=== PATIENT | female | born 1990 | race African-American/Black ===

== ENCOUNTER 2016-04-11 06:37 | Emergency (ER) | payer OTHER ==
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
[2016-04-11 07:58] LABS: BASO% 0.4 % (0.0-0.8); EOS# 0.42 X1000 (0.0-0.7); EOS% 5.1 % (0.0-10.0); HEMATOCRIT 34.7 % (37.0-47.0); HEMOGLOBIN 11.6 g/dL (12.0-16.0); IMM GRAN# 0.01 X1000 (0.0-0.04); IMM GRAN% 0.1 % (0.0-0.5); LYMPH# 2.69 X1000 (1.2-3.4); LYMPH% 32.4 % (20.5-51.1); MANUAL DIFF NEEDED? NO; MCHC 33.4 g/dL (33-37); MPV 8.8 FL (7.4-10.4); PLT 343 X1000 (130-400); RBC 6.09 XMIL (4.2-5.4)
[2016-04-11 07:59] LABS: URINE SOURCE CLEAN CATCH
[2016-04-11 08:03] LABS: BILIRUBIN URINE NEGATIVE (NEGATIVE); BLOOD URINE NEGATIVE (NEGATIVE); CLARITY SL. CLOUDY (CLEAR); COLOR YELLOW; GLUCOSE URINE NEGATIVE (NEGATIVE); LEUKOCYTES URINE NEGATIVE (NEGATIVE); NITRITE URINE NEGATIVE (NEGATIVE); PH URINE 6.5; PROTEIN URINE 2+(100 mg/dL) mg/dL (NEGATIVE); UROBILINOGEN URINE NORMAL
[2016-04-11 08:07] LABS: AGAP 11; ALBUMIN 4.3 g/dL (3.5-5.0); ALKALINE PHOSPHATASE 100 U/L (32-104); BUN 8 mg/dL (8-22); CALCIUM 9.2 mg/dL (8.8-10.2); CHLORIDE 105 mmol/L (98-107); COSMO 278; GOT 22 U/L (10-30); GPT 25 U/L (10-36); POTASSIUM 3.8 mmol/L (3.5-5.1); SODIUM 140 mmol/L (136-145); TCO2 24 mmol/L (25-35); TOTAL PROTEIN 6.9 g/dL (6.3-8.3)
[2016-04-11 08:07] LABS: URINE CULTURE PL NEEDED? YES; URINE EPITHELIAL CELLS >10 /HPF (<10)
[2016-04-11 08:14] LABS: PROTIME 13.5 Seconds (12.1-15.5)
[2016-04-11 08:41] LABS: CK PROFILE 224 U/L (24-173)
[2016-04-11 08:59] LABS: CK INDEX 0.7 (0.0-2.5); CK-MB 1.67 ng/mL (0.0-5.0)
--- NOTE | 2016-04-11 09:57 | Diag Imaging Result Document ---
PROCEDURE NAME: LOWER LEG-LEFT - 04/11/2016 LEFT TIBIA AND FIBULA, TWO VIEWS: FINDINGS: No fracture. No dislocation. IMPRESSION: No acute bony injury.
--- NOTE | 2016-04-11 09:58 | Diag Imaging Result Document ---
PROCEDURE NAME: ANKLE COMPLETE LEFT - 04/11/2016 LEFT ANKLE, THREE VIEWS: FINDINGS: No fracture. No dislocation. IMPRESSION: No acute bony injury.
--- NOTE | 2016-04-11 09:59 | Diag Imaging Result Document ---
PROCEDURE NAME: FEMUR MIN 2 VIEWS LEFT - 04/11/2016 LEFT FEMUR, FOUR VIEWS: FINDINGS: No fracture. No dislocation. IMPRESSION: No acute bony injury.
--- NOTE | 2016-04-11 10:02 | Diag Imaging Result Document ---
PROCEDURE NAME: HEAD/C-SPINE W/O CONTRAST - 04/11/2016 CT BRAIN AND CERVICAL SPINE WITHOUT: CT BRAIN: FINDINGS: No parenchymal hemorrhage. No epidural or subdural hematoma. No subarachnoid hemorrhage. No skull fracture. No hydrocephalus. No mass identified on this noncontrasted exam. No sinus opacification. IMPRESSION: No hemorrhage. No injury. CT CERVICAL SPINE WITHOUT CONTRAST: FINDINGS: There is mild scoliosis. No precervical soft tissue swelling. No subluxation. No fracture. IMPRESSION: No acute bony injury. A preliminary report was given at 9:25 a.m..
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
[2016-04-11 10:16] VITALS: BP 144/74
== END 2016-04-11 10:16 | disposition home or self-care (01) ==
LOC: P.ED 06:37
DX: S90.812A Abrasion, left foot, initial encounter (principal); S90.512A Abrasion, left ankle, initial encounter; M25.512 Pain in left shoulder; M79.605 Pain in left leg; M79.1 Myalgia; R26.2 Difficulty in walking, not elsewhere classified; M62.81 Muscle weakness (generalized); M54.2 Cervicalgia; H53.149 Visual discomfort, unspecified; K44.9 Diaphragmatic hernia without obstruction or gangrene; E11.9 Type 2 diabetes mellitus without complications; I10 Essential (primary) hypertension; F17.210 Nicotine dependence, cigarettes, uncomplicated; E66.9 Obesity, unspecified; Z79.899 Other long term (current) drug therapy; Z87.442 Personal history of urinary calculi; V49.9XXA Car occupant (driver) (passenger) injured in unspecified traffic accident, initial encounter
CPT/HCPCS: 70450; 71260; 72125; 74177; 80053; 81001; 81025; 82550; 82553; 85025; 85610; 87088; Q9967

== ENCOUNTER 2018-10-19 18:24 | Inpatient (IN) ==
[2018-10-19] MEDS ORDERED: TYLENOL PO ONE (18:36)
--- NOTE | 2018-10-19 19:11 | PROVIDER DOCUMENTATION ---
HPI-General Adult - General Chief Complaint: Fever Stated Complaint: PAIN IN NECK DOWN BODY Time Seen by Provider: 10/19/18 18:58 Source: patient Allergies/Adverse Reactions: Patient Allergies Allergy/AdvReac Type Severity Reaction Status Date / Time latex Allergy RASH Verified 04/03/17 13:53 Home Medications: Home Medication List Medication Instructions Recorded Confirmed Last Taken Type Metformin [Glucophage] 500 mg PO BID 10/11/15 03/17/17 03/11/16 History Omeprazole [Prilosec] 20 mg PO DAILY@0700 #20 capsule 12/17/15 03/17/17 03/11/16 Rx Lisinopril/Hydrochlorothiazide 1 each PO BID 03/11/16 03/17/17 03/11/16 History [Lisinopril-Hctz 20-25 mg Tab] Albuterol Sulfate 2.5 mg IH Q4H PRN PRN #120 vial.neb 10/27/16 03/17/17 Unknown Rx Albuterol Sulfate [Albuterol 8.5 gm IH Q4-6H PRN PRN #1 10/27/16 03/17/17 Unknown Rx Sulfate Hfa] hfa.aer.ad Albuterol Sulfate [Proair Hfa] 8.5 gm IH PRN PRN #2 hfa.aer.ad 10/27/16 03/17/17 Unknown Rx Methylprednisolone [Medrol Dosepak] 4 mg PO DIRECTED #1 pkg 03/17/17 Unknown Rx Ondansetron Odt [Zofran 8Mg Odt] 8 mg PO Q8H PRN PRN #20 tab 03/17/17 Unknown Rx Oseltamivir [Tamiflu] 75 mg PO BID #10 cap 03/17/17 Unknown Rx Acetaminophen/Diphenhydramine 1 ea PO TID #15 tab 04/03/17 Unknown Rx [Percogesic 325-12.5 mg Tablet] Amoxicillin [Amoxil] 500 mg PO BID #14 cap 07/18/17 Unknown Rx Guaifen/Dextromethorphan/PE 1 ea PO Q4-6H PRN PRN #20 tab 07/18/17 Unknown Rx [Deconex Dmx Tablet] Methylprednisolone [Medrol Dosepak] 4 mg PO DIRECTED #1 pkg 07/18/17 Unknown Rx - History of Present Illness -Gen Adult Nature of Presenting Problems: [id number] presents to the ER with c/o neck pain and stiffness with fever. She states she woke up Johnathan with neck pain that continues to get worse. She states that today she is unable to move her neck in any direction without extreme pain. Upon arrival patients temp is 101.7. She denies any injury. She states the pain radiates down to her knees if she makes any attempt at movement. Location of Pain/Injury: reports: neck Pain Radiation: reports: other (down the spine to her knees) Quality of Pain: reports: sharp, stabbing Severity: reports: severe Onset/Duration: reports: 4 days ago Timing: reports: getting worse Context/Activities at Onset: reports: none Modifying Factors: improves with: immobilization Associated Symptoms: reports: fever/chills Similar Symptoms Previously?: No Recently seen or treated by another doctor?: No Review of Systems - Adult - REVIEW OF SYSTEMS - ADULT Constitutional: reports: see HPI, chills, fever Eyes: reports: no symptoms reported. denies: decreased vision, double vision Ears, Nose, Mouth & Throat: reports: no symptoms reported. denies: ear pain, epistaxis Cardiovascular: reports: no symptoms reported. denies: edema, palpitations, syncope Respiratory: reports: no symptoms reported. denies: dyspnea on exertion, shortness of breath, wheezing Gastrointestinal: reports: no symptoms reported Genitourinary: reports: no symptoms reported Musculoskeletal: reports: see HPI, neck pain Integumentary: reports: no symptoms reported Neurological: reports: no symptoms reported. denies: dizziness/vertigo, loss of balance, syncope Psychiatric: reports: no symptoms reported Endocrine: reports: no symptoms reported Hematologic/Lymphatic: reports: no symptoms reported Allergic/Immunologic: reports: no symptoms reported All Other Systems: Reviewed and Negative Past History - Adult - PAST MEDICAL HISTORY-ADULT Review of Records: reports: Old Records Reviewed, Nursing Assessment Review, Medications Reviewed, Social history reviewed & non-contributory. Major Childhood Illnesses: reports: denies history Cardiovascular: reports: HTN Respiratory: reports: asthma Gastrointestinal: reports: denies history Obstetrical/Gynecological: reports: denies history Genitourinary: reports: kidney stones Musculoskeletal: reports: denies history Neurological: reports: headaches/migraines Endocrine/Immune: reports: denies history Other Conditions: reports: denies history - PRIOR SURGERIES/PROCEDURES Surgical/Procedure History: reports: , hernia repair - IMMUNIZATION STATUS Childhood Immunizations: See Nurse Assessment Flu Vaccine: See Nurse Assessment - FAMILY HISTORY Family History: reviewed, not pertinent - SOCIAL HISTORY Smoking: denies Substance Use: none/never Living Situation: family Physical Exam-General - PHYSICAL EXAM-ADULT Initial Vital Signs Reviewed: Yes - CONSTITUTIONAL General Appearance: alert, mild distress - EYES Eyes: PERRL/EOMI, pink conjunctivae - HEAD, EARS, NOSE, MOUTH & THROAT HENMT: normocephalic/atraumatic, moist mucous membranes, normal ENT inspection - NECK Neck: C-spine tenderness, limited range of motion. negative: non-tender, full range of motion, supple - RESPIRATORY Respiratory: chest non-tender, lungs clear, normal breath sounds - CARDIOVASCULAR Cardiovascular: normal peripheral pulses, regular rate, rhythm - GASTROINTESTINAL (ABDOMEN) Abdominal Exam: normal bowel sounds, non tender, soft - LYMPHATIC Lymphatic: no adenopathy - MUSCULOSKELETAL Back Exam: normal inspection, vertebral tenderness (c-spine, t-spine with any motion of the head) Extremity: non-tender, normal gait Peripheral Pulses: radial (R): 2+, radial (L): 2+, dorsalis-pedis (R): 2+, dorsalis-pedis (L): 2+ - SKIN Integumentary: normal color, normal turgor, warm/dry - PSYCHIATRIC Psych/Mental Status: oriented x 3 Progress - PLAN OF CARE/RESULTS Progress/Plan/Lab Results: Vital Signs - 8 hr 10/19/18 18:32 Temperature 101.7 F H Pulse Rate 106 H Respiratory Rate 18 Blood Pressure 131/80 O2 Sat by Pulse Oximetry 97 Orders Category Date Time Status CT CERVICAL SPINE W/CONTRAST [CT] Stat Exams 10/19/18 19:08 Ordered BLOOD CULTURE [BLDCUL] Stat Lab 10/19/18 19:08 Uncollected CBC WITH ELECTRONIC DIFF [HEME] Stat Lab 10/19/18 18:58 Uncollected COMPREHENSIVE METABOLIC PANEL [CHEM] Stat Lab 10/19/18 19:08 Uncollected Acetaminophen [Tylenol] Med 10/19/18 18:36 Discontinued 1,000 mg PO NOW ONE patient verbalizes an understanding of POC and agrees with treatment rendered here today. She will be admitted to the hospital. Result Diagrams: 10/19/18 19:26 10/19/18 19:26 - XRAY 1 XRAY Study: C-Spine Impression: Normal (no acute abnormality), See EMR Report - CONSULTS/PCP/HOSPITALIST Notification #1 *Consult/PCP/Hospitalist*: Dr Mcfadden Time Discussed: 11:45 Reason/Comments: FUO, leukocytosis Consult Disposition: Admit Procedures - LUMBAR PUNCTURE Procedure, Risk, Benefits and Alternatives discussed with:: Patient Consent Form Signed?: Yes Time-Out Verification Completed?: Yes Patient Position: Sitting over table Insertion Site: L4-5 Site Prep: Kit Utilized, Betadine Anesthetic: 1%, Lidocaine/Xylocaine Volume of Anesthetic (ml's): 3 Procedure Successful?: No Procedure Comment: bloody tap, advised MLP to contact radiologist for fluoro- directed LP Departure - Departure Date of Disposition Decision: 10/20/18 Time of Disposition Decision: 00:20 DIAGNOSIS: Fever of unknown origin (FUO) Leukocytosis Qualifiers: Leukocytosis type: unspecified Qualified Code(s): D72.829 - Elevated white blood cell count, unspecified Disposition: ADMITTED INPATIENT 09 Certified Medical Emergency: Emergent Condition: Critical Additional Freetext Instructions: ED Follow Up Instructions: You have been treated by a care provider in the Emergency Department. These instructions are being provided to you so you can have an understanding of how to care for yourself upon discharge. Upon discharge from the Emergency Department, you are responsible for making arrangements for follow-up care by a physician of your choice. Take all prescribed medications as directed. Return to the Emergency Department immediately for any new or worsening symptoms. You may call the Physician Referral phone number at [phone] to obtain a list of Physicians who are taking new patients. Referrals and Follow-Ups: Tim Nicole MD [Primary Care Provider] - - Critical Care Note This patient required my direct & personal management of CC.: Yes Total Time (mins): 42 Critical Care Statement: This patient required my direct personal management to treat or rule out processes, the absence of which, could potentiallly result in sudden, clinically significant life or limb threatening deterioration. Attestation - Physician/ KIMI Attestation Patient care was provided by Advanced Practice Provider:: Yes Advanced Practice Provider:: Dante Mendoza Advanced Practice Provider documentation review:: The Mid-level provider documentation, treatment plan and medical decision making was reviewed by the physician who agrees with all treatment and medical decision making by the MLP. The physician spent face to face time with patient:: Yes (Dr Vilchis, Dr Alonzo) Advanced Practice Provider documentation review:: Supervising physician onsite and consulted in the evaluation and care of this patient. The physician did have a face to face encounter with the patient.
[2018-10-19 19:48] LABS: EOS# 0.24 X1000 (0.0-0.7); HEMATOCRIT 38.2 % (37.0-47.0); HEMOGLOBIN 13.1 g/dL (12.0-16.0); LYMPH# 7.45 X1000 (1.2-3.4); LYMPH% 63.1 % (20.5-51.1); MCH 21.7 PG (27-31); MCHC 34.3 g/dL (33-37); MCV 63.2 FL (81-99); MONO# 1.78 X1000 (0.11-0.59); MONO% 15.1 % (1.7-9.3); MPV 10.3 FL (7.4-10.4); PLT 247 X1000 (130-400); RBC 6.04 XMIL (4.2-5.4); WBC 11.81 X1000 (4.8-10.8)
[2018-10-19 20:05] LABS: AGAP 12; ALBUMIN 3.1 g/dL (3.5-5.0); ALKALINE PHOSPHATASE 108 U/L (32-104); BUN 6 mg/dL (8-22); CALCIUM 7.8 mg/dL (8.8-10.2); CHLORIDE 98 mmol/L (98-107); COSMO 264; CREATININE 0.8 mg/dL (0.5-0.9); ESTIMATED GFR > 60; GLUCOSE 103 mg/dL (70-104); GOT 49 U/L (10-30); GPT 42 U/L (10-36); POTASSIUM 4.1 mmol/L (3.5-5.1); SODIUM 133 mmol/L (136-145); TCO2 24 mmol/L (25-35); TOTAL PROTEIN 6.5 g/dL (6.3-8.3)
[2018-10-19 20:11] LABS: BANDS 2 % (0-1); EOS 4 % (1-10); LYMPHS 60 % (21-51); MONO 10 % (1-9); SEGS 18 % (42-75)
[2018-10-19 20:17] LABS: HYPOCHROM 2+; MICROCYTOSIS 2+; OVALOCYTES 2+; POIKILOCYTOSIS 2+
[2018-10-19 20:18] LABS: TARGET CELLS 1+
[2018-10-19] MEDS ORDERED: ROCEPHIN 1 GM in NS 50 ML IV ONE (20:41)
[2018-10-19] MEDS ORDERED: BENADRYL IV ONE (21:20)
[2018-10-19] MEDS ORDERED: SODIUM CHLORIDE 0.9% INJ ONE (21:20)
[2018-10-19] MEDS ORDERED: PHENERGAN IV ONE (21:20)
[2018-10-19] MEDS ORDERED: SOLU-MEDROL IV ONE (21:20)
[2018-10-19] MEDS ORDERED: XYLOCAINE-MPF 1% ONE (23:31)
[2018-10-19] MEDS ORDERED: XYLOCAINE 1% INJ ONE (23:32)
[2018-10-20] MEDS ORDERED: ZOFRAN IV PRN (00:22)
[2018-10-20] MEDS ORDERED: TYLENOL PO PRN (00:22)
[2018-10-20] MEDS ORDERED: MORPHINE IV PRN ×2 (04:29→18:21)
--- NOTE | 2018-10-20 07:14 | Diag Imaging Result Doc PS360 ---
EXAM: CT CERVICAL SPINE W/CONTRAST - 10/19/2018 HISTORY: cervical pain, fever TECHNIQUE: CT cervical spine with intravenous contrast COMPARISON: 04/11/2016 CT cervical spine without contrast FINDINGS: There is no fracture or subluxation identified. There are no erosive or destructive changes identified. There is no substantial disc protrusion or central degenerative disease identified. There is a 0.6 cm low-density area in the inferior right submandibular gland of uncertain significance. This does not have enhancing margins. Otherwise, there is no discrete abscess identified neck. There are mildly prominent right submandibular lymph nodes. There are nonspecific small bilateral cervical lymph nodes. There is mild enlargement of the inferior left lobe thyroid but this enhances similarly to the remainder of the thyroid. IMPRESSION: Unremarkable cervical spine. No evidence of fracture or subluxation. 0.6 mm low-density area in inferior right submandibular gland uncertain significance. Mildly prominent right submandibular lymph nodes. Nonspecific small bilateral cervical lymph nodes. Mild enlargement of the inferior left thyroid lobe. The remediation technician radiologist provided preliminary results at 11:24 PM on 10/19/2018. This exam was performed using automated exposure control, adjustment of mA or kV according to patient size, and/or use of iterative reconstruction technique. Electronically signed by Srikanth Castillo 10/20/2018 7:12 AM
[2018-10-20] MEDS: MORPHINE IV PRN ×2 (11:14→14:54)
--- NOTE | 2018-10-20 14:26 | HISTORY AND PHYSICAL ---
PRIMARY CARE PROVIDER: Tim Nicole MD. CHIEF COMPLAINT: Neck pain. HISTORY OF PRESENT ILLNESS: Ms. Carter is a 28-year-old female who carries a past medical history of chronic hypertension, diabetes mellitus, GERD who reported to the ED complaining of neck pain. She states a few weeks ago she started feeling lightheaded, weak, and was diagnosed with a UTI in [place]. She has really not had an appetite since that time. Over the last few days she has been having some neck pain that radiated to her back and knees, especially when looking down. She came today to the ED to be evaluated. She was found to have a temp of 101.7 degrees. They did try to do a spinal tap that was unsuccessful. Cervical spine CT was unremarkable. No evidence of fracture or subluxation. There was a 0.6 mm low-density area in the inferior right submandibular gland of uncertain significance with mildly prominent right submandibular lymph nodes, mild enlargement of her inferior left thyroid lobe. She had a slightly elevated white count at 11. Sodium 133, AST of 49, ALT of 42, and alkaline phosphatase of 108. We currently have an MRI and MRA of the brain and neck ordered and initiated her on IV antibiotics prophylactically. PAST MEDICAL HISTORY: 1. Diabetes mellitus. 2. Hypertension. 3. GERD. PAST SURGICAL HISTORY: 1. Four C-sections. 2. Umbilical hernia repair. 3. Left middle finger surgery. FAMILY HISTORY: Paternal grandmother with a myocardial infarction. Diabetes mellitus in all family. Mother with uterine or cervical cancer x2. SOCIAL HISTORY: She is single. She has 2 children. She smokes 6 cigarettes per day. No alcohol or illicit drug use. She lives in the [place] area. HOME MEDICATIONS: 1. Clonidine. 2. Norvasc. 3. Lisinopril hydrochlorothiazide. 4. Prilosec. ALLERGIES: Latex. REVIEW OF SYSTEMS: Twelve-point review of systems completely negative except for those mentioned in HPI. PHYSICAL EXAMINATION: VITAL SIGNS: Temperature is 97.9 degrees, heart rate 77, respirations 18, blood pressure 121/75, O2 is 100% on room air. GENERAL: Ms. Carter is a 28-year-old female who is lying in the bed on her right side. She is not currently in any pain, in no acute distress. HEENT: Atraumatic, normocephalic. PERRL. NECK: Supple. Trachea midline. CARDIOVASCULAR: S1, S2 appreciated. No murmurs, gallops, rubs noted. RESPIRATORY: Lung sounds clear bilaterally. GI: Soft, nontender, nondistended. Positive bowel sounds in 4 quadrants. EXTREMITIES: Lower extremities negative for edema. NEUROLOGIC: No focal deficits noted. DIAGNOSTIC DATA: Cervical spine CT as per HPI. Pending a brain MRI, neck MRA. LABORATORY DATA: White count 11, hemoglobin and hematocrit 13 and 38, platelet count is 247,000. Sodium 133, potassium 4.1, BUN 6, creatinine 0.8, blood glucose is 103, AST 49, ALT 42, alkaline phosphatase 108. ASSESSMENT AND PLAN: 1. Neck pain. We will rule out any acute processes. CT did not really show anything acute. They did attempt a spinal tap, that was unsuccessful. We have ordered an MRI of the brain and MRA of the neck. We will continue with IV pain medication. 2. Fever of unknown origin. We will continue with IV Rocephin. She has been afebrile since admission. Continue with p.r.n. Tylenol. 3. Transaminitis. We will recheck her levels in the a.m. 4. Mild hyponatremia. 5. Further recommendations to follow physician evaluation, laboratory and diagnostic data. Dictated by NARINDER Sandy for Lloyd Bowling MD cc: Lloyd Bowling MD
[2018-10-20] MEDS ORDERED: VENTOLIN HFA INH PRN (14:28)
[2018-10-20] MEDS ORDERED: ALBUTEROL NEB INH PRN (14:28)
[2018-10-20] MEDS ORDERED: NICODERM PATCH TD PRN (14:28)
--- NOTE | 2018-10-20 15:54 | Diag Imaging Result Doc PS360 ---
MRI BRAIN W/O CONTRAST - 10/20/2018 INDICATION: stiff neck w/ fever COMPARISON: 06/27/2014 FINDINGS: There is no area of restricted diffusion. The ventricles and sulci are normal in size and contour. No intracranial mass or hemorrhage. Midline structures including the optic chiasm and pituitary are normal. IMPRESSION: Negative exam. Electronically signed by Shane Cash 10/20/2018 3:52 PM
[2018-10-20] MEDS: CATAPRES PO SCH (16:58)
--- NOTE | 2018-10-20 17:37 | CONSULTATION ---
DATE OF CONSULTATION: 10/20/2018 Ms. Carter is 28 years old and she has had some neck pain and possibly malaise. History from the patient is that she noticed about 3 weeks ago that she felt lightheaded sometimes and that she did not have an appetite. She felt a little bit weak all over without focal features. She reports she presented to a local facility and was diagnosed with urinary tract infection. She took some medicine for a week. She returned to the facility reporting lightheadedness, anorexia, weakness were all the same and she had begun to notice sharp pain mostly posteriorly in her neck without definite radicular features. She began to notice that flexing her head would cause pain which seemed to travel down her spine into both legs. She did not notice focal weakness, focal clumsiness, increased tone in 1 limb more than another. She did not fall. She did not lose bowel or bladder control. Today, she reports appetite is beginning to recover. Neck pain has persisted. She reports no history of head, neck, shoulder injury. She has not had similar problems in the past. She takes hydrocodone chronically with monthly supply prescribed by Dr. Nicole. She reports not missing any doses, but she presented with urine drug screen negative for opiates on 10/10/2018. PDMP shows she had used alprazolam regularly but stopped that about 6 months ago. Today, she told me she has not had recent illicit drugs, illegal drugs, benzodiazepines of any sort. She drinks ethanol occasionally. She reports recent birthday was associated with a little bit more ethanol than usual. She presented this time with mildly elevated liver enzymes: AST 49, ALT 42, and old lab results in the computer showed previously normal liver enzymes. Other lab work includes WBC 11,810. Sodium was 133. Blood sugar was 103 on admission yesterday. She reports diagnosis of diabetes mellitus in the past and she reports being told more recently that she does not have diabetes mellitus. She has hypertension and GERD. She takes medicine for those problems. She had temperature 101.7 degrees initially and she has been afebrile for the last 24 hours. Systolic blood pressures have ranged 100 to 130s. Imaging includes cervical CT showing nothing remarkable. Noncontrast brain MRI today is unremarkable. Computer record shows 06/27/2014 brain MRI with and without contrast unremarkable. After admission, for her neck pain, she received morphine sulfate 4 mg and 2 mg 1 dose each. On exam, Ms. Carter is awake, alert, attentive. She seems appropriate. Speech is not dysarthric. Language function is intact. Memory is good. Head is unremarkable. Slight passive head flexion produces what she reports is intense pain in her neck. I do not palpate paraspinal spasm, but she could not tolerate vigorous neck muscle palpation because of discomfort. She has discomfort with head rotation left and right and with extension, but more discomfort with flexion than with other maneuvers. Visual jones are full. Extraocular movements are full. Facial motility is normal and symmetric. Gag is intact. Tongue is midline. She can hear. Shoulder shrug is equal. Strength is normal in the arms and legs. She did well on [id number] testing bilaterally. She reports symmetric sensation over the limbs. Proprioception is normal at the great toe MTP joint and at the second finger MCP joint bilaterally, but her responses are little bit more brisk in the right limbs than the left. She did well on [id number] testing bilaterally. Tone may be slightly increased in the left limbs. Reflexes are 2+ at the left knee, 1+ at the right knee, 2+ at the left ankle, 1+ at the right ankle, 1+ symmetrically at the wrists, 2+ symmetrically at the biceps. Tone and reflexes are inconsistent and somewhat difficult to boat oar maker with certainty due to her movement and repositioning during testing; she reported neck discomfort with passive knee extension. Plantar response is silent bilaterally. I did not test her gait. IMPRESSION: Neck pain. There is some fairly subtle evidence of tonal asymmetry, increased in the left limbs, but I am not certain these findings are valid. She reported a good bit of discomfort and any passive movement including passively positioning her legs to check reflexes was often associated with some voluntary limb muscle contraction. Negative cervical CT is reassuring. Negative brain MRI is reassuring. Next step would be to consider cervical MRI to get a better look at the spinal cord. If this is purely a cervical myelopathy, I do not think we would see as much cervical paraspinal muscle tenderness. I am optimistic that she may have turned the corner and started to improve with some improvement in appetite. I do not think we have to do anything urgently but, if she does not continue to improve, cervical MRI with contrast would be the next step from a Neurology standpoint. For current management, we might consider cautious trial with steroids if she really does not have diabetes mellitus. We might try muscle relaxer such as cyclobenzaprine or methocarbamol. She reports taking cyclobenzaprine in the past and she tolerated that. If she develops more persistent cervical paraspinal spasm, we might cautiously try diazepam, but I am reluctant to add a benzodiazepine for this patient who recently stopped taking alprazolam regularly. Thanks for asking Neurology to see Ms. Carter. I will be glad to see her as an outpatient, if needed. cc: MD MONIKA Bianchi III
[2018-10-20] MEDS ORDERED: ROBAXIN PO PRN (18:21)
[2018-10-20] MEDS: SOLU-MEDROL IV SCH (18:43)
[2018-10-20] MEDS ORDERED: ROCEPHIN 1 GM in NS 50 ML IV SCH (21:00)
--- NOTE | 2018-10-20 23:55 | HISTORY AND PHYSICAL ---
ADDENDUM: SUBJECTIVE: The patient has a multitude of complaints. Unfortunately it is quite difficult to ascertain what is actually her complaints versus her aunt's previous medical issues as she frequently intertwines the two. She does note that she has been lightheaded, dizzy. She has had some neck pain which certainly does not appear to be meningitis type neck pain as she is noted to sit up on the side of the bed without any assistance, no grimacing. She did have a low-grade fever of 101.7 in the ER, but has had no fever since. Spinal tap was attempted in the ER and was unsuccessful. We are going to admit her to the hospital and ask Neurology for an opinion, check MRI and we will follow. cc: Lloyd Bowling MD
[2018-10-21 05:48] VITALS: BP 116/63
[2018-10-21] MEDS: SOLU-MEDROL IV SCH (05:59)
[2018-10-21] MEDS ORDERED: PRILOSEC PO SCH (07:00)
[2018-10-21] MEDS ORDERED: NON-FORMULARY MED (Lisinopril/Hydrochlorothiazide [Lisinopril-Hctz 20-25 Mg Tab] 1 EACH) PO SCH (09:00)
[2018-10-21] MEDS: HYDROCHLOROTHIAZIDE PO SCH ×2 (09:36→09:42)
[2018-10-21] MEDS: NORVASC PO SCH ×2 (09:37→09:43)
[2018-10-21] MEDS: PRINIVIL PO SCH ×2 (09:37→09:43)
[2018-10-21] MEDS: CATAPRES PO SCH ×2 (09:37→09:42)
[2018-10-21] MEDS ORDERED: NORCO-7.5 PO ONE (09:59)
--- NOTE | 2018-10-21 10:50 | DISCHARGE SUMMARY ---
ADMISSION DATE: 10/20/2018 DISCHARGE DATE: 10/21/2018 CONSULTATIONS: Dr. Kelly with Neurology. PERTINENT PROCEDURES: 1. Cervical spine CT unremarkable. 2. Brain MRI negative exam. DIAGNOSES: 1. Neck pain. The patient has been evaluated by Neurology. She does have a negative cervical spine CT as well as a negative brain MRI. We have set her up for a MRI of her cervical spine as an outpatient to be followed up by her PCP Dr. Tim Nicole. We will do steroid Dosepak. 2. Diabetes mellitus. The patient is not currently on any medications. Diet controlled. 3. Fever of unknown origin. She has been on IV Rocephin, and has continued to be afebrile. 4. Hypertension. Continue home medications. 5. Transaminitis. 6. Mild hyponatremia. 7. Hypertension. Continue home medications. HOSPITAL COURSE: Briefly, Ms. Carter is a 28-year-old female who carries a past medical history of chronic hypertension, diabetes mellitus, GERD, who reported to the ED complaining of neck pain. She stated a few days ago she started feeling lightheaded, weak, unable to eat, and was diagnosed with UTI in [place] where she lives. Over the last few days, she had been having some neck pain that radiated through her back into her knees, especially when looking down. She came to the ED to be evaluated. She was found to have a temperature of 101.7 degrees, and initiated on Rocephin. They did try a spinal tap, but that was unsuccessful. Cervical spine CT was unremarkable as well as a brain MRI. She has been afebrile since admission. She will not be discharged home on any antibiotics. We will do a trial of steroids for her neurology's recommendations as well as set her up for an outpatient MRI on her cervical spine. She has to follow up with her primary care provider, Dr. Tim Nicole, and is being discharged home today. VITAL SIGNS: Temperature 98 degrees, heart rate 63, respirations 18, blood pressure 116/63, and O2 is 100% on room air. DISCHARGED DIET: Diabetic. DISCHARGE MEDICATIONS: 1. Clonidine 0.1 mg p.o. t.i.d. 2. Lisinopril/hydrochlorothiazide 1 each p.o. daily. 3. Norvasc 10 mg p.o. daily. 4. Prilosec 40 mg p.o. daily. 5. Albuterol sulfate 2.5 g inhaled q.4 hours p.r.n. shortness of breath. 6. Medrol Dosepak 4 mg p.o. as directed. 7. ProAir inhaler 8.5 g inhaled p.r.n. 8. Robaxin 500 mg p.o. q.6 hours p.r.n. neck pain. FOLLOWUP: Ms. Carter is being discharged home with Medrol Dosepak and Robaxin. She is take all other medications as prescribed. She will be scheduled for an outpatient MRI and follow up with Dr. Tim Nicole MD. She can return to the ED or call 911 for any worsening of symptoms. Dictated by NARINDER Sandy for Lloyd Bowling MD cc: Lloyd Bowling MD MTDD
--- NOTE | 2018-10-22 22:07 | DISCHARGE SUMMARY ---
ADMISSION DATE: 10/20/2018 DISCHARGE DATE: 10/21/2018 ADDENDUM: Patient seen and examined by myself. Full note dictated and discussed with nurse practitioner. On discharge, patient is awake, alert, currently in no respiratory distress. Her neck pain seems to be resolved. She is sitting up on the side of the bed, conversing with her 8- year-old son. She was seen by Neurology. MRI of the brain and CT of the neck were all negative. Discussed her that she needs to consider doing an MRI of her C-spine as an outpatient. We will discharge her home. She has been afebrile since admission. cc: Lloyd Bowling MD
== END 2018-10-21 10:20 | disposition home or self-care (01) | DRG 552 ==
LOC: P.ED 18:24 → P.MEDSURG 10-20 01:59 → SUATTDRO 10-20 01:59
PROVIDERS: ATTEND Family Medicine